=== PATIENT | female | born 1955 | race Caucasian/White ===

== ENCOUNTER 2020-10-31 09:23 | Inpatient (IN) | payer BC ==
[2020-10-31] MEDS ORDERED: morphine CARPU-JECT 4 MG/1 ML DISP.SYRIN IVPUSH ONE ×3 (09:33→12:02)
[2020-10-31] MEDS ORDERED: morphine SULFATE 4 MG/ML VIAL ONE ×3 (09:41→12:03)
[2020-10-31] MEDS ORDERED: SODIUM CHLORIDE 1,000 ML IV STA (10:22)
[2020-10-31] MEDS ORDERED: PROPOFOL 200 MG/20 ML VIAL IVPUSH ONE (10:35)
[2020-10-31] MEDS ORDERED: PROPOFOL 20 ML ONE (10:55)
[2020-10-31] MEDS ORDERED: LIDOCAINE HCL 2% (20ML MULTI-DOSE VIAL) ONE (12:24)
[2020-10-31] MEDS ORDERED: MIDAZOLAM HCL 5 MG/1 ML Single Dose Vial IVPUSH ONE (12:33)
[2020-10-31] MEDS ORDERED: MIDAZOLAM HCL 2 MG/2 ML SINGLE DOSE VIAL ONE (12:35)
[2020-10-31] MEDS ORDERED: hydrOXYzine PAMOATE 25 MG CAPSULE (FP) PO SCH (13:15)
[2020-10-31 13:48] LABS: BASO % 1.1 % (0-2.0); EOS % 1.2 % (0-4.5); HEMATOCRIT 37.7 % (32.4-45.2); HEMOGLOBIN 12.3 GM/dl (10.7-15.3); LYMPH % 17.8 % (8-40); MCH 31.1 pg (25.7-33.7); MCHC 32.5 g/dl (32.0-36.0); MEAN CELL VOLUME 95.7 fl (80-96); MEAN PLT VOLUME 8.2 fl (7.5-11.1); NEUT % 70.9 % (42.8-82.8); PLATELET COUNT 246 10^3/uL (134-434); RBC 3.95 M/mm3 (3.60-5.2); RDW 12.4 % (11.6-15.6); WHITE BLOOD COUNT 6.8 K/mm3 (4.0-10.8)
[2020-10-31 13:50] LABS: INR 1.01 (0.82-1.09); PROTHROMBIN TIME (PATIENT) 11.3 SEC (10.2-13.0)
[2020-10-31 14:15] LABS: ALBUMIN 3.8 g/dl (3.4-5.0); BILIRUBIN,TOTAL 0.9 mg/dl (0.2-1); CALCIUM 8.2 mg/dl (8.5-10); CREATININE 0.4 mg/dl (0.55-1.3); TOT PROT 6.3 g/dl (6.4-8.2)
[2020-10-31 17:34] VITALS: BMI 30.7
[2020-10-31] MEDS: morphine SULFATE 4 MG/ML VIAL IVPUSH PRN ×2 (17:51→23:33)
[2020-10-31] MEDS: ACETAMINOPHEN 1000 MG/100 ML VIAL (NON FORMULARY) IVPB SCH ×2 (18:00→19:30)
[2020-10-31] MEDS: LOSARTAN POTASSIUM 25 MG TABLET PO SCH (18:00)
[2020-10-31] MEDS ORDERED: SENNOSIDES/DOCUSATE COMBO (SENNA PLUS) TABLET (UD) PO SCH (22:00)
[2020-11-01] MEDS ORDERED: LACTATED RINGERS SOLUTION 1,000 ML/1,000 ML INFUS.BAG IV SCH (00:01)
[2020-11-01] MEDS: ACETAMINOPHEN 1000 MG/100 ML VIAL (NON FORMULARY) IVPB SCH ×4 (01:30→19:40)
[2020-11-01] MEDS: morphine SULFATE 4 MG/ML VIAL IVPUSH PRN (06:18)
[2020-11-01] MEDS: VENLAFAXINE HCL 75 MG E.R. CAPSULES PO SCH (06:18)
[2020-11-01] MEDS ORDERED: MORPHINE SULFATE 2 MG/ML VIAL IVPUSH PRN (09:09)
[2020-11-01] MEDS: LOSARTAN POTASSIUM 25 MG TABLET PO SCH (09:44)
[2020-11-01] MEDS: MORPHINE SULFATE 2 MG/ML VIAL IVPUSH PRN ×3 (11:55→21:11)
[2020-11-01] MEDS: HEPARIN NA (PORCINE) 5,000 UNITS/ML 1ML VIAL SQ SCH ×2 (14:37→21:15)
[2020-11-01] MEDS ORDERED: oxyCODONE HCL 5 MG TABLET PO PRN (15:32)
[2020-11-02] MEDS: ACETAMINOPHEN 1000 MG/100 ML VIAL (NON FORMULARY) IVPB SCH ×4 (00:52→19:54)
[2020-11-02] MEDS: MORPHINE SULFATE 2 MG/ML VIAL IVPUSH PRN (04:31)
[2020-11-02] MEDS: HEPARIN NA (PORCINE) 5,000 UNITS/ML 1ML VIAL SQ SCH (05:36)
[2020-11-02] MEDS: VENLAFAXINE HCL 75 MG E.R. CAPSULES PO SCH (06:12)
[2020-11-02] MEDS ORDERED: BUPIVACAINE HCL/PF 0.5% (5MG/ML) 10 ML VIAL ONE (07:19)
[2020-11-02] MEDS ORDERED: LIDOCAINE HCL 2% (20ML MULTI-DOSE VIAL) ONE (07:19)
[2020-11-02] MEDS ORDERED: ROCURONIUM BROMIDE 50 MG/5 ML SYRINGE ONE (07:26)
[2020-11-02] MEDS ORDERED: SUCCINYLCHOLINE CHLORIDE 200 MG/10 ML SYRINGE ONE (07:26)
[2020-11-02] MEDS ORDERED: MIDAZOLAM HCL 2 MG/2 ML SINGLE DOSE VIAL ONE (07:26)
[2020-11-02] MEDS ORDERED: PROPOFOL 20 ML ONE ×2 (07:26)
[2020-11-02] MEDS ORDERED: ceFAZolin SODIUM 1 GM VIAL ONE (07:27)
[2020-11-02] MEDS ORDERED: DEXAMETHASONE SOD PHOSPHATE 4 MG/1 ML VIAL ONE ×2 (07:27→08:47)
[2020-11-02] MEDS ORDERED: ONDANSETRON 4 MG/2 ML VIAL ONE (07:27)
[2020-11-02] MEDS ORDERED: LIDOCAINE HCL/PF 2% SDV 5ML VIAL ONE (07:27)
[2020-11-02] MEDS ORDERED: ceFAZolin SODIUM 1 GM VIAL IVPB ONE (07:55)
[2020-11-02] MEDS ORDERED: ONDANSETRON 4 MG/2 ML VIAL IVPUSH PRN (09:45)
[2020-11-02] MEDS ORDERED: LACTATED RINGERS SOLUTION 1,000 ML IV SCH (09:45)
[2020-11-02] MEDS: CHOLECALCIFEROL (VIT D3) 1,000 UNIT (25 MCG) TABLET PO SCH (11:05)
[2020-11-02] MEDS: LOSARTAN POTASSIUM 25 MG TABLET PO SCH (11:05)
[2020-11-02] MEDS: CEFAZOLIN 1 GM/D5W 1 GM/50 ML BAG IVPB SCH (15:27)
[2020-11-02] MEDS: DOCUSATE SODIUM 100 MG CAPSULE (FP) PO SCH (21:13)
[2020-11-03] MEDS: CEFAZOLIN 1 GM/D5W 1 GM/50 ML BAG IVPB SCH ×2 (00:07→08:12)
[2020-11-03] MEDS: ACETAMINOPHEN 1000 MG/100 ML VIAL (NON FORMULARY) IVPB SCH ×2 (02:08→06:39)
[2020-11-03] MEDS: MORPHINE SULFATE 2 MG/ML VIAL IVPUSH PRN ×3 (04:05→20:33)
[2020-11-03] MEDS: VENLAFAXINE HCL 75 MG E.R. CAPSULES PO SCH (06:39)
[2020-11-03 09:07] LABS: HEMATOCRIT 33.5 % (32.4-45.2); HEMOGLOBIN 11.8 GM/dL (10.7-15.3); MCH 32.9 pg (25.7-33.7); MCHC 35.1 g/dl (32.0-36.0); MEAN CELL VOLUME 93.9 fl (80-96); MEAN PLT VOLUME 7.4 fl (7.5-11.1); PLATELET COUNT 242 10^3/uL (134-434); RBC 3.57 M/mm3 (3.60-5.2); RDW 12.8 % (11.6-15.6)
[2020-11-03 09:20] LABS: CALCIUM 8.4 mg/dL (8.5-10.1)
[2020-11-03 09:21] LABS: BLOOD UREA NITROGEN 11.2 mg/dL (7-18)
[2020-11-03 09:24] LABS: CREATININE 0.5 mg/dL (0.55-1.3)
[2020-11-03] MEDS ORDERED: PT OWN MED DRAWER 7, Y5N ONE (09:52)
[2020-11-03] MEDS: CHOLECALCIFEROL (VIT D3) 1,000 UNIT (25 MCG) TABLET PO SCH (09:54)
[2020-11-03] MEDS: ENOXAPARIN NA (PORCINE) 40 MG/0.4 ML DISP.SYRIN SQ SCH (09:55)
[2020-11-03] MEDS: LOSARTAN POTASSIUM 25 MG TABLET PO SCH (09:55)
[2020-11-03] MEDS: oxyCODONE HCL 5 MG TABLET PO PRN (10:45)
[2020-11-03] MEDS ORDERED: ACETAMINOPHEN 1000 MG/100 ML VIAL (NON FORMULARY) IVPB SCH ×2 (13:30)
[2020-11-03] MEDS: DOCUSATE SODIUM 100 MG CAPSULE (FP) PO SCH (21:00)
[2020-11-04] MEDS: MORPHINE SULFATE 2 MG/ML VIAL IVPUSH PRN ×3 (02:14→13:41)
[2020-11-04] MEDS: VENLAFAXINE HCL 75 MG E.R. CAPSULES PO SCH (06:08)
[2020-11-04 07:50] LABS: HEMATOCRIT 33.6 % (32.4-45.2); HEMOGLOBIN 11.7 GM/dL (10.7-15.3); MCH 32.7 pg (25.7-33.7); MCHC 34.7 g/dl (32.0-36.0); MEAN CELL VOLUME 94.3 fl (80-96); MEAN PLT VOLUME 7.2 fl (7.5-11.1); PLATELET COUNT 230 10^3/uL (134-434); RBC 3.57 M/mm3 (3.60-5.2); RDW 13.1 % (11.6-15.6); WHITE BLOOD COUNT 6.2 K/mm3 (4.0-10.0)
[2020-11-04 08:06] LABS: CALCIUM 8.5 mg/dL (8.5-10.1)
[2020-11-04 08:07] LABS: BLOOD UREA NITROGEN 10.6 mg/dL (7-18)
[2020-11-04 08:10] LABS: CREATININE 0.4 mg/dL (0.55-1.3)
[2020-11-04] MEDS ORDERED: PT OWN MED DRAWER 7, Y5N ONE (09:27)
[2020-11-04] MEDS: ENOXAPARIN NA (PORCINE) 40 MG/0.4 ML DISP.SYRIN SQ SCH (09:32)
[2020-11-04] MEDS: LOSARTAN POTASSIUM 25 MG TABLET PO SCH (09:32)
[2020-11-04] MEDS: CHOLECALCIFEROL (VIT D3) 1,000 UNIT (25 MCG) TABLET PO SCH (09:32)
[2020-11-04] MEDS ORDERED: TAMSULOSIN HCL 0.4 MG CAP PO ONE (15:30)
[2020-11-04] MEDS: DOCUSATE SODIUM 100 MG CAPSULE (FP) PO SCH (21:04)
[2020-11-05] MEDS: VENLAFAXINE HCL 75 MG E.R. CAPSULES PO SCH (06:13)
[2020-11-05] MEDS ORDERED: PT OWN MED DRAWER 7, Y5N ONE (09:12)
[2020-11-05] MEDS: oxyCODONE HCL 5 MG TABLET PO PRN (09:15)
[2020-11-05] MEDS: CHOLECALCIFEROL (VIT D3) 1,000 UNIT (25 MCG) TABLET PO SCH (09:15)
[2020-11-05] MEDS: ENOXAPARIN NA (PORCINE) 40 MG/0.4 ML DISP.SYRIN SQ SCH (09:15)
[2020-11-05] MEDS: LOSARTAN POTASSIUM 25 MG TABLET PO SCH (09:15)
[2020-11-05] MEDS: ACETAMINOPHEN 325 MG TABLET (FP) PO PRN ×3 (10:59→22:17)
[2020-11-05] MEDS: DOCUSATE SODIUM 100 MG CAPSULE (FP) PO SCH (21:02)
[2020-11-06] MEDS: VENLAFAXINE HCL 75 MG E.R. CAPSULES PO SCH (06:50)
[2020-11-06] MEDS: TAMSULOSIN HCL 0.4 MG CAP PO SCH (08:52)
[2020-11-06] MEDS ORDERED: PT OWN MED DRAWER 7, Y5N ONE (09:18)
[2020-11-06] MEDS: ENOXAPARIN NA (PORCINE) 40 MG/0.4 ML DISP.SYRIN SQ SCH (09:24)
[2020-11-06] MEDS: LOSARTAN POTASSIUM 25 MG TABLET PO SCH (09:25)
[2020-11-06] MEDS: CHOLECALCIFEROL (VIT D3) 1,000 UNIT (25 MCG) TABLET PO SCH (09:25)
[2020-11-06] MEDS ORDERED: PATIENT'S OWN MEDICATION (NON-FORMULARY) (Bupropion Hcl [Wellbutrin Xl] 300 MG Tab.Er.24h) PO SCH (10:00)
[2020-11-06] MEDS: PANTOPRAZOLE 40 MG TABLET PO SCH (11:42)
[2020-11-06] MEDS: ACETAMINOPHEN 325 MG TABLET (FP) PO PRN (21:15)
[2020-11-06] MEDS: DOCUSATE SODIUM 100 MG CAPSULE (FP) PO SCH (21:18)
[2020-11-06 22:43] LABS: EPI CELLS 10 /uL (0-25.1); HYALINE CASTS 1 /uL (0-3.1); URINE APPEARANCE Error; URINE BACTERIA 12 /uL (0-1359); URINE BILIRUBIN NEGATIVE (NEGATIVE); URINE COLOR YELLOW; URINE GLUCOSE (UA) NEGATIVE (NEGATIVE); URINE KETONE NEGATIVE (NEGATIVE); URINE LEUK ESTERASE 1+ (NEGATIVE); URINE NITRITE NEGATIVE (NEGATIVE); URINE PROTEIN 1+ (NEGATIVE); URINE RBC 43 /uL (0-23.9); URINE UROBILINOGEN 0.2 mg/dL (0.2-1.0); URINE WBC 36 /uL (0-25.8)
[2020-11-07] MEDS: VENLAFAXINE HCL 75 MG E.R. CAPSULES PO SCH (06:10)
[2020-11-07] MEDS: TAMSULOSIN HCL 0.4 MG CAP PO SCH (08:52)
[2020-11-07] MEDS ORDERED: PT OWN MED DRAWER 7, Y5N ONE (09:26)
[2020-11-07] MEDS: LOSARTAN POTASSIUM 25 MG TABLET PO SCH (09:28)
[2020-11-07] MEDS: PANTOPRAZOLE 40 MG TABLET PO SCH (09:28)
[2020-11-07] MEDS: ENOXAPARIN NA (PORCINE) 40 MG/0.4 ML DISP.SYRIN SQ SCH (09:28)
[2020-11-07] MEDS: CHOLECALCIFEROL (VIT D3) 1,000 UNIT (25 MCG) TABLET PO SCH (09:28)
[2020-11-07 12:26] VITALS: BP 108/89; PULSE 103; TEMP 98
== END 2020-11-07 12:30 | DRG 494 ==
LOC: FER 09:23 → UNDOADMIN 16:50 → FM/S 16:50 → J6S 11-01 20:50 → UNDODISOB 11-02 13:49 → OBSVTOIN 11-02 16:29
PROVIDERS: ADMIT Internal Medicine; ATTEND Internal Medicine
PROC: 0QSH04Z Reposition Left Tibia with Internal Fixation Device, Open Approach (ICD-10-PCS; 2020-11-02)
PROC: 0QSK04Z Reposition Left Fibula with Internal Fixation Device, Open Approach (ICD-10-PCS; principal; 2020-11-02 07:30)
DX: S82.855A Nondisplaced trimalleolar fracture of left lower leg, initial encounter for closed fracture (principal); S82.492A Other fracture of shaft of left fibula, initial encounter for closed fracture; W19.XXXA Unspecified fall, initial encounter; Y93.9 Activity, unspecified; Y92.89 Other specified places as the place of occurrence of the external cause; I10 Essential (primary) hypertension; F41.8 Other specified anxiety disorders; N99.89 Other postprocedural complications and disorders of genitourinary system; R33.9 Retention of urine, unspecified; Y83.9 Surgical procedure, unspecified as the cause of abnormal reaction of the patient, or of later complication, without mention of misadventure at the time of the procedure
CPT/HCPCS: 36415; 73590-TC-LT-FY; 73610-TC-LT-FY; 73700-TC-RT; 76000-TC-FY; 80048; 80053; 81003; 83735; 85025; 85027; 85610; 86850; 86900; 86901; 87086; 93005; 94760; 97116-GP; 97162-GP; 99285-25; C9803; G0378; J0131; J1644; U0003; U0005

== ENCOUNTER 2020-11-18 12:53 | Day surgery (SDC) | payer BC ==
[2020-11-17 15:33] VITALS: BMI 29.9
[2020-11-18] MEDS ORDERED: BUPIVACAINE HCL/PF 0.5% (5MG/ML) 10 ML VIAL ONE (13:46)
[2020-11-18] MEDS ORDERED: MIDAZOLAM HCL 2 MG/2 ML SINGLE DOSE VIAL ONE (13:46)
[2020-11-18] MEDS ORDERED: BUPIVACAINE LIPOSOME/PF (EXPAREL) 266 MG/20 ML VIAL ONE (13:46)
[2020-11-18] MEDS ORDERED: DEXAMETHASONE SOD PHOSPHATE 4 MG/1 ML VIAL ONE (14:12)
[2020-11-18] MEDS ORDERED: ONDANSETRON 4 MG/2 ML VIAL ONE ×2 (14:12→17:00)
[2020-11-18] MEDS ORDERED: PROPOFOL 20 ML ONE ×2 (14:12→16:30)
[2020-11-18] MEDS ORDERED: ePHEDrine SULFATE 50 MG/1 ML AMPULE ONE (14:31)
[2020-11-18] MEDS ORDERED: VASOPRESSIN 20 UNITS/ML VIAL IV ONE (14:40)
[2020-11-18] MEDS ORDERED: TRANEXAMIC ACID 1000 MG/10 ML VIAL ONE (14:54)
[2020-11-18] MEDS ORDERED: GLYCOPYRROLATE 0.2 MG/1 ML VIAL ONE (15:21)
[2020-11-18] MEDS ORDERED: ONDANSETRON 4 MG/2 ML VIAL IVPUSH PRN (17:36)
[2020-11-18] MEDS ORDERED: oxyCODONE HCL 5 MG TABLET PO PRN (17:36)
[2020-11-18] MEDS ORDERED: LACTATED RINGERS SOLUTION 1,000 ML IV SCH (17:45)
[2020-11-18 18:21] VITALS: BP 103/64; PULSE 89; TEMP 97.8
== END 2020-11-18 18:29 ==
LOC: FASU 12:53
PROVIDERS: ATTEND Orthopaedic Surgery Sports Medicine
PROC: 0QSH04Z Reposition Left Tibia with Internal Fixation Device, Open Approach (ICD-10-PCS; 2020-11-18)
PROC: 0QSH04Z Reposition Left Tibia with Internal Fixation Device, Open Approach (ICD-10-PCS; 2020-11-18)
PROC: 0SPGX5Z Removal of External Fixation Device from Left Ankle Joint, External Approach (ICD-10-PCS; 2020-11-18)
PROC: 0QSK04Z Reposition Left Fibula with Internal Fixation Device, Open Approach (ICD-10-PCS; principal; 2020-11-18 14:53)
DX: S82.852A Displaced trimalleolar fracture of left lower leg, initial encounter for closed fracture (principal); X58.XXXA Exposure to other specified factors, initial encounter; Y93.9 Activity, unspecified; Y92.9 Unspecified place or not applicable; R26.2 Difficulty in walking, not elsewhere classified; Z99.89 Dependence on other enabling machines and devices
CPT/HCPCS: 20694; 27822; C1713; 73610-TC-LT-FY; 73630-TC-LT; 94760

== ENCOUNTER 2021-11-28 13:25 | Emergency (ER) | payer BC ==
[2021-11-28] MEDS ORDERED: SODIUM CHLORIDE 0.9% 1000 ML INFUS.BAG IV ONE ×2 (13:41→15:54)
[2021-11-28] MEDS ORDERED: ONDANSETRON 4 MG/2 ML VIAL IVPUSH ONE (13:41)
[2021-11-28] MEDS ORDERED: ACETAMINOPHEN 1000 MG/100 ML BAG IVPB ONE (13:41)
[2021-11-28 13:45] VITALS: RESP 16; BMI 29.1
[2021-11-28] MEDS ORDERED: ONDANSETRON 4 MG/2 ML VIAL ONE (13:47)
[2021-11-28] MEDS ORDERED: ACETAMINOPHEN INJECTION 100 ML IVPB ONE (13:48)
[2021-11-28 14:54] LABS: HEMATOCRIT 37.3 % (32.4-45.2); HEMOGLOBIN 12.8 G/dL (10.7-15.3); MCH 32.5 pg (25.7-33.7); MCHC 34.4 g/dl (32.0-36.0); MEAN CELL VOLUME 94.4 fl (80-96); MEAN PLT VOLUME 7.7 fl (7.5-11.1); PLATELET COUNT 198.2 10^3/uL (134-434); RBC 3.95 10^6/uL (3.60-5.2); WHITE BLOOD COUNT 6.3 10^3/uL (4.0-10.8)
[2021-11-28 15:01] LABS: ALBUMIN 3.9 g/dl (3.4-5.0); BILIRUBIN,TOTAL 0.8 mg/dl (0.2-1); CALCIUM 8.7 mg/dl (8.5-10); CREATININE 0.5 mg/dl (0.55-1.3); TOT PROT 6.6 g/dl (6.4-8.2)
[2021-11-28 17:43] LABS: EPITHELIAL CELLS FEW /hpf
[2021-11-28 18:01] VITALS: BP 117/73; PULSE 90; TEMP 100.3
[2021-11-28] MEDS ORDERED: CEPHALEXIN MONOHYDRATE 500 MG CAPSULE (UD) PO ONE (18:04)
[2021-11-28] MEDS ORDERED: CEPHALEXIN MONOHYDRATE 500 MG CAPSULE (UD) ONE (18:05)
== END 2021-11-28 18:10 | disposition home or self-care (01) ==
LOC: FER 13:25
PROC: 3E033GC Introduction of Other Therapeutic Substance into Peripheral Vein, Percutaneous Approach (ICD-10-PCS; principal; 2021-11-28)
DX: N30.01 Acute cystitis with hematuria (principal)
CPT/HCPCS: 0241U-QW; 36415; 80053; 81003; 81015; 85027; 87040; 87086; 99284-25

== ENCOUNTER 2022-07-25 09:53 | Day surgery (SDC) | payer BC ==
[2022-07-19 15:37] VITALS: BMI 27.8
[2022-07-25] MEDS: CIPROFLOXACIN 0.3% EYE DROPS 5 ML BOTTLE ONE ×3 (10:45→10:55)
[2022-07-25] MEDS: TROPICAMIDE 1% OPHTH SOLN 15 ML BOTTLE ONE ×3 (10:45→10:55)
[2022-07-25] MEDS: PHENYLEPHRINE 2.5% OPTHALMIC DROP 2ML BOTTLE ONE ×3 (10:45→10:55)
[2022-07-25] MEDS: CYCLOPENTOLATE 2% OPHTH SOLN 2 ML BOTTLE ONE ×3 (10:45→10:55)
[2022-07-25] MEDS ORDERED: BSS (NA/CA/MG/K) BALANCED SALT SOLUTION OPHTH SOLN 15 ML BOTTLE ONE (10:50)
[2022-07-25] MEDS ORDERED: CARBACHOL 0.01% INTRA-OCULAR 1.5 ML VIAL ONE (10:51)
[2022-07-25] MEDS ORDERED: NEO/POLYMYX B SULF/DEXAMETH OPHTHALMIC 5ML BOTTLE ONE (10:51)
[2022-07-25] MEDS ORDERED: MIDAZOLAM HCL 2 MG/2 ML SINGLE DOSE VIAL ONE (11:36)
[2022-07-25] MEDS ORDERED: LACTATED RINGERS SOLUTION 1,000 ML IV SCH (11:45)
[2022-07-25 13:15] VITALS: BP 140/85; PULSE 78; RESP 19; TEMP 97.6
== END 2022-07-25 13:15 | disposition home or self-care (01) ==
LOC: FASU 09:53
PROVIDERS: ATTEND Ophthalmology
PROC: 08RK3JZ Replacement of Left Lens with Synthetic Substitute, Percutaneous Approach (ICD-10-PCS; principal; 2022-07-25 11:42)
DX: H26.8 Other specified cataract (principal)
CPT/HCPCS: 66984; V2632

== ENCOUNTER 2022-08-22 10:39 | Day surgery (SDC) | payer BC ==
[2022-08-16 16:56] VITALS: BMI 27.8
[2022-08-22] MEDS ORDERED: MIDAZOLAM HCL 2 MG/2 ML SINGLE DOSE VIAL ONE ×2 (10:43→11:45)
[2022-08-22] MEDS ORDERED: TETRACAINE 0.5% OPHTH SOLN 2 ML BOTTLE ONE (11:04)
[2022-08-22] MEDS ORDERED: CARBACHOL 0.01% INTRA-OCULAR 1.5 ML VIAL ONE (11:04)
[2022-08-22] MEDS ORDERED: LIDOCAINE 1% P/F 10 MG/ML VIAL ONE (11:04)
[2022-08-22] MEDS ORDERED: BSS (NA/CA/MG/K) BALANCED SALT SOLUTION OPHTH SOLN 15 ML BOTTLE ONE (11:04)
[2022-08-22] MEDS ORDERED: NEO/POLYMYX B SULF/DEXAMETH OPHTHALMIC 5ML BOTTLE ONE (11:04)
[2022-08-22] MEDS: CIPROFLOXACIN 0.3% EYE DROPS 5 ML BOTTLE ONE ×3 (11:15→11:25)
[2022-08-22] MEDS: PHENYLEPHRINE 2.5% OPTHALMIC DROP 2ML BOTTLE ONE ×3 (11:15→11:25)
[2022-08-22] MEDS: CYCLOPENTOLATE 2% OPHTH SOLN 2 ML BOTTLE ONE ×3 (11:15→11:25)
[2022-08-22] MEDS: TROPICAMIDE 1% OPHTH SOLN 15 ML BOTTLE ONE ×3 (11:15→11:25)
[2022-08-22 11:26] VITALS: TEMP 98
[2022-08-22] MEDS ORDERED: KETOROLAC TROMETHAMINE 30 MG/1 ML VIAL ONE (12:47)
[2022-08-22] MEDS ORDERED: ACETAMINOPHEN 500 MG TABLET (FP) ONE (13:07)
[2022-08-22 13:33] VITALS: RESP 18
[2022-08-22 13:51] VITALS: BP 122/60; PULSE 71
== END 2022-08-22 14:00 | disposition home or self-care (01) ==
LOC: FASU 10:39
PROVIDERS: ATTEND Ophthalmology
PROC: 08RJ3JZ Replacement of Right Lens with Synthetic Substitute, Percutaneous Approach (ICD-10-PCS; principal; 2022-08-22 12:29)
DX: H26.8 Other specified cataract (principal)
CPT/HCPCS: 66984; V2632

== ENCOUNTER 2022-12-27 06:15 | Day surgery (SDC) | payer BC, OTHER ==
[2022-12-21 12:00] VITALS: BMI 26.2
[2022-12-27] MEDS ORDERED: LIDOCAINE HCL/PF 2% SDV 5ML VIAL ONE (07:13)
[2022-12-27] MEDS ORDERED: MIDAZOLAM HCL 2 MG/2 ML SINGLE DOSE VIAL ONE (07:13)
[2022-12-27] MEDS ORDERED: PROPOFOL 20 ML ONE (07:13)
[2022-12-27] MEDS ORDERED: BUPIVACAINE HCL/PF 2.5 MG/ML - 30 ML VIAL IJ ONE (07:24)
[2022-12-27] MEDS ORDERED: BUPIVACAINE HCL/PF 0.5% (5MG/ML) 10 ML VIAL ONE (07:24)
[2022-12-27] MEDS ORDERED: ceFAZolin SODIUM 1 GM VIAL ONE (07:44)
[2022-12-27] MEDS ORDERED: DEXAMETHASONE SOD PHOSPHATE 4 MG/1 ML VIAL ONE (07:44)
[2022-12-27] MEDS ORDERED: ONDANSETRON 4 MG/2 ML VIAL ONE (07:51)
[2022-12-27] MEDS ORDERED: KETOROLAC TROMETHAMINE 30 MG/1 ML VIAL ONE (07:51)
[2022-12-27] MEDS ORDERED: ACETAMINOPHEN 1000 MG/100 ML BAG IVPB ONE (09:11)
[2022-12-27] MEDS ORDERED: ONDANSETRON 4 MG/2 ML VIAL IVPUSH PRN (09:11)
[2022-12-27] MEDS ORDERED: oxyCODONE HCL 5 MG TABLET PO PRN ×2 (09:11)
[2022-12-27] MEDS ORDERED: PROMETHAZINE HCL 25 MG/1 ML VIAL IVPB PRN (09:11)
[2022-12-27] MEDS ORDERED: LACTATED RINGERS SOLUTION 1,000 ML IV SCH (09:15)
[2022-12-27] MEDS ORDERED: FENTANYL CITRATE/PF 50 MCG/ML VIAL ONE ×3 (09:17→10:08)
[2022-12-27 10:13] VITALS: RESP 16
[2022-12-27] MEDS ORDERED: oxyCODONE HCL 5 MG TABLET ONE (10:34)
[2022-12-27 10:55] VITALS: TEMP 98
[2022-12-27 11:47] VITALS: BP 128/75; PULSE 92
== END 2022-12-27 11:40 | disposition home or self-care (01) ==
LOC: FASU 06:15
PROVIDERS: ATTEND Orthopaedic Surgery Sports Medicine
PROC: 0SPG04Z Removal of Internal Fixation Device from Left Ankle Joint, Open Approach (ICD-10-PCS; principal; 2022-12-27 07:58)
DX: T84.84XA Pain due to internal orthopedic prosthetic devices, implants and grafts, initial encounter (principal); Y79.1 Therapeutic (nonsurgical) and rehabilitative orthopedic devices associated with adverse incidents; Y92.9 Unspecified place or not applicable; M25.572 Pain in left ankle and joints of left foot
CPT/HCPCS: 94760